=== PATIENT | male | born 1970 | race Caucasian/White ===

== ENCOUNTER → 2018-12-20 | Outpatient (CLI) | payer OTHER | LOC: ULTRA 10:04 | DX: R10.11 Right upper quadrant pain (principal) ==

== ENCOUNTER → 2019-06-20 | Outpatient (CLI) | payer OTHER | LOC: NUC 09:04 | DX: R10.11 Right upper quadrant pain (principal); M54.5 Low back pain ==

== ENCOUNTER 2020-01-06 17:51 | Emergency (ER) | payer OTHER ==
[~2020-01-06] VITALS: Ht 180.3 cm; Wt 83.9 kg
[2020-01-06] MEDS ORDERED: SUPER THERAVIT1 EACH PO (18:02)
[2020-01-06] MEDS ORDERED: FISH OIL 1,0001 EAC9 PO (18:02)
[2020-01-06 18:48] LABS: HEMATOCRIT 42.9 % (42.0-52.0); HEMOGLOBIN 14.1 gm/dL (14.0-18.0); MCH 30.1 pg (26.0-34.0); MCV 91.3 fL (80.0-100.0); PLATELET COUNT 277 thou/uL (150-400); RDW 12.5 % (10.5-14.5); WBC 18.6 thou/uL (4.0-11.0)
[2020-01-06 18:58] LABS: ANION GAP 11 mmol/L (7-16); BUN 17 mg/dL (7-18); CALCIUM 9.2 mg/dL (8.5-10.1); CHLORIDE 103 mmol/L (98-107); CO2 24 mmol/L (21-32); CREATININE 1.2 mg/dL (0.7-1.3); GLUCOSE 159 mg/dL (74-106); POTASSIUM 4.2 mmol/L (3.5-5.1); SODIUM 138 mmol/L (136-145)
[2020-01-06 19:04] LABS: ALBUMIN 4.2 g/dL (3.4-5.0); SGOT 34 U/L (15-37); SGPT 34 U/L (30-65); TOTAL BILIRUBIN 0.8 mg/dL (0.2-1.0)
[2020-01-06 19:06] LABS: DIRECT BILIRUBIN < 0.1 mg/dL (<0.1-0.2)
[2020-01-06 19:09] LABS: ABSOLUTE NEUTROPHILS 16.2 thou/uL (1.4-8.2)
[2020-01-06] MEDS ORDERED: ZOFRAN ODT4 MG PO (21:31)
[2020-01-06] MEDS ORDERED: NORCO 5-325 TA1 EAC1 PO (21:31)
[2020-01-06 21:41] VITALS: BP 126/81
[2020-01-06 21:44] LABS: URINE BILIRUBIN NEGATIVE (Negative); URINE BLOOD NEGATIVE (Negative); URINE CLARITY CLEAR; URINE COLOR YELLOW; URINE GLUCOSE-RANDOM* NEGATIVE (Negative); URINE KETONES NEGATIVE (Negative); URINE LEUKOCYTES-REFLEX NEGATIVE (Negative); URINE NITRITE-REFLEX NEGATIVE (Negative); URINE PROTEIN (DIPSTICK) NEGATIVE (Negative); URINE UROBILINOGEN 0.2 E.U./dl (0.2-1.0)
[2020-01-06 21:56] LABS: AMP/METHAMP Negative (Negative); BARBITURATES Negative (Negative); BENZODIAZEPINES Negative (Negative); COCAINE Negative (Negative); METHADONE Negative (Negative); OPIATES Negative (Negative); PCP Negative (Negative)
== END 2020-01-06 21:50 | disposition home or self-care (01) ==
LOC: ER 17:51
PROVIDERS: Emergency Medicine
DX: K85.90 Acute pancreatitis without necrosis or infection, unspecified (principal); E87.2 Acidosis; E78.5 Hyperlipidemia, unspecified; Z79.899 Other long term (current) drug therapy